=== PATIENT | male | born 1960 | race Caucasian/White ===

== ENCOUNTER 2025-02-03 08:40 | Outpatient (OUT) | payer MEDICARE, OTHER, SELFPAY ==
--- NOTE | 2025-02-03 09:00 | NM_ITS ---
Patient Name: CHUCK EDMONDSON MR#: [id number] : 1960 Exam Date: 02/03/2025 Ordering Doctor: MRS. IRENE HECK CHRONIC DISEASE EPIDEMIOLOGIST-C RADIOLOGY REPORT PROCEDURE: NM LENO PERF SPECT REST STR COMPARISON: None. INDICATIONS: CORONARY ARTERY CALCIUM SCORE OF 1908.6 TECHNIQUE: Exam Description: Stress/Rest two day protocol gated SPECT Rest Imagin.1 mCi Tc-99m Cardiolite IV on 02/04/2025 Stress Imaging 25.2 mCi Tc-99m Cardiolite IV on 02/04/2025 Exercise Protocol: 0.4 mg Lexiscan given IV Heart Rate (bpm): Rest: 55 Max: 72 PMHR: 46 Blood Pressure: Rest: 160/90 Max: 160/90 Symptoms: Rest and peak stress ECG findings were pending and the exercise portion of the study was pending per attending physician [facility] . For more details please see separate cardiac stress test report. FINDINGS: QUALITY OF STUDY: Good PERFUSION DEFECT: LOCATION: Inferior and inferior lateral SIZE: Moderate SEVERITY: Moderate TYPE: Partially reversible, inferior defect is a mostly fixed but the inferolateral defect is reversible WALL MOTION: Mild hypokinesis of inferior and inferolateral wall LV SIZE: 152 mL. TID / TCD: 0.9 LVEF: Calculated EF 50% SUMMARY: Abnormal myocardial perfusion imaging study CONCLUSION: Abnormal myocardial perfusion stress test showing evidence of inferolateral ischemia and possible old inferior infarct Low normal left ventricle systolic function, ejection fraction 50%. Hypokinesis of inferior and inferolateral bateman was noted No transient ischemic dilatation, TID 0.9 EKG portion of stress test is reported separately Dictated by: Shade Loo MD on 02/05/2025 at 12:15 Approved by: Shade Loo MD on 02/05/2025 at 12:24
[2025-02-03] MEDS: REGADENOSON 0.4 MG/5 ML SYRINGE IV (09:23)
--- NOTE | 2025-02-03 09:24 | PC.NURSE ---
Nursing Note Cardiac Stress Test Reviewed: Medication, allergies and patient history reviewed. Stress Test: [x ] Patient tolerated stress test well. [ ] Patient unable to tolerate walking on treadmill. Switched to Lexiscan stress test. [x ] No chest pain noted per patient [ ] Chest pain that resolved prior to leaving stress lab. [x ] No dyspnea noted. [ ] Dyspnea that resolved prior to leaving stress lab. [x ] Patient left stress lab asymptomatic and hemodynamically stable. [ ] Patient taken to the Emergency Room due to non-resolving symptoms following stress test. [ ] Patient achieved target heart rate. [ ] Patient unable to achieve target heart rate. [ ] Aminophylline administered as reversal agent to Lexiscan (Regadenoson). [ ] Nitro administered. Nursing Comments:Pt had lexiscan done due to not being able to walk on TM per order. Pt tolerated well. No chest pain or SOB noted. Pt had no symptoms at end of test and ambulated to cafeteria for breakfast prior to images.
== END 2025-02-03 08:41 | disposition home or self-care (01) ==
LOC: CARD 08:44
PROVIDERS: PCP Internal Medicine; Visit Provider Nurse Practitioner Family
DX: R94.39 Abnormal result of other cardiovascular function study (principal); Z91.89 Other specified personal risk factors, not elsewhere classified; I51.89 Other ill-defined heart diseases
CPT/HCPCS: 78452; 93017; A9500; J2785

== ENCOUNTER 2025-06-22 08:34 | Outpatient (OUT) | payer MEDICARE, OTHER, SELFPAY ==
[2025-06-22 09:19] LABS: Hematocrit 48.6 % (42.0-54.0); Hemoglobin 17.4 g/dL (14.0-18.0); Immature Granulocytes Abs Auto 0.01 10^3/uL (0.00-0.03); Immature Granulocytes Pct Auto 0.2 % (0.0-0.5); Lymphocytes Absolute Auto 1.2 10^3/uL (1.2-3.8); Mean Corpuscular HGB Conc 35.8 g/dL (29.9-35.2); Mean Corpuscular Hemoglobin 31.6 pg (25.9-34.0); Mean Corpuscular Volume 88.2 fL (80.0-94.0); Platelet Count 144 10^3/uL (150-450); Red Blood Count 5.51 10^6/uL (4.70-6.10); White Blood Count 5.9 10^3/uL (4.0-11.0)
[2025-06-22 09:33] LABS: Alanine Aminotransferase 51 U/L (16-63); Albumin Globulin Ratio 1.3; Albumin Level 4.0 g/dL (3.4-5.0); Alkaline Phosphatase 84 U/L (46-116); Anion Gap 12.4; Aspartate Amino Transferase 28 U/L (15-37); Blood Urea Nitrogen 11.0 mg/dL (7.0-18.0); Calcium 9.2 mg/dL (8.5-10.1); Carbon Dioxide 28.3 mmol/L (21.0-32.0); Chloride 107 mmol/L (98-107); Cholesterol 124 mg/dL (<=200); Estimated GFR (African America >60 (>=60 mL/min/1.73m^2); Estimated GFR (Non-African Ame >60 (>=60 mL/min/1.73m^2); Globulin 3.0 g/dL; Glucose 130 mg/dL (74-106); HDL Cholesterol 49 mg/dL (40-60); Potassium 3.7 mmol/L (3.5-5.1); Sodium 144 mmol/L (136-145); Total Protein 7.0 g/dL (6.4-8.2); Triglycerides 128 mg/dL (<=150); VLDL CHOLESTEROL 25.6 mg/dL
== END 2025-06-22 08:35 | disposition home or self-care (01) ==
LOC: LAB 08:37
PROVIDERS: PCP Internal Medicine; Visit Provider Physician Assistant
DX: Z12.5 Encounter for screening for malignant neoplasm of prostate (principal); I10 Essential (primary) hypertension; E66.9 Obesity, unspecified; I45.10 Unspecified right bundle-branch block
CPT/HCPCS: 36415; 80053; 80061; 85025; G0103